=== PATIENT | male | born 1935 | race Caucasian/White ===

== ENCOUNTER 2017-05-07 14:58 | Outpatient (RCR) | payer MEDICARE, OTHER | END 2017-05-08 | disposition home or self-care (01) | LOC: ONC 14:58 | PROVIDERS: ATTEND Radiology Radiation Oncology | DX: C61 Malignant neoplasm of prostate (principal) | CPT/HCPCS: 77300; 77301; 77338; 77385; 99214 ==

== ENCOUNTER 2017-07-09 13:10 | Outpatient (RCR) | payer MEDICARE, OTHER | END 2017-08-08 | disposition home or self-care (01) | LOC: ONC 13:10 | PROVIDERS: ATTEND Radiology Radiation Oncology | DX: Z51.0 Encounter for antineoplastic radiation therapy (principal); C61 Malignant neoplasm of prostate | CPT/HCPCS: 77307; 77334; 77336; 77385 ==

== ENCOUNTER 2018-02-22 14:51 | Outpatient (RCR) | payer MEDICARE, OTHER | END 2018-03-08 | disposition home or self-care (01) | LOC: ONC 14:51 | PROVIDERS: ATTEND Radiology Radiation Oncology | DX: C61 Malignant neoplasm of prostate (principal) | CPT/HCPCS: 99213 ==